=== PATIENT | male | born 1940 | race Two or more races ===

== ENCOUNTER 2017-01-21 08:15 | Inpatient (IN) | payer MEDICARE ==
[2017-01-21] VITALS (10 sets, daily range): BP systolic 113–148; BP diastolic 75–98
[~2017-01-21] VITALS: Ht 172.7 cm; Wt 82.6 kg
[~2017-01-21 08:15] MED LIST: Vancomycin 1 GM in D5W 275 ML IVPB ONE
[2017-01-21] MEDS ORDERED: DEXILANT60 MG ORAL (09:10)
[2017-01-21] MEDS ORDERED: NORVASC5 MG ORAL (09:10)
[2017-01-21] MEDS ORDERED: ASPIR 8181 MG ORAL (09:10)
--- NOTE | 2017-01-21 09:58 | Pre-Procedure Note/Attestation ---
Pre-Procedure Note/Attestation Complete Prior to Procedure Planned Procedure: not applicable Procedure Narrative: Remove and replace IPP Indications for Procedure Pre-Operative Diagnosis: ED Attestation I attest that I discussed the nature of the procedure; its benefits; risks and complications; and alternatives (and the risks and benefits of such alternatives ), prior to the procedure, with the patient (or the patient's legal client support representative). I attest that, if there was a reasonable possibility of needing a blood transfusion, the patient (or the patient's legal client support representative) was given the [facility] standardized written summary, pursuant to the Feliciano Vinny Blood Safety Act ([place] Health and Safety Code # 1645, as amended). I attest that I re-evaluated the patient just prior to the surgery and that there has been no change in the patient's H&P, except as documented below: Apolinar Toribio MD Jan 21, 2017 09:58
[2017-01-21] MEDS ORDERED: Sterile Water Irrig 1000ml IRRIG ONE (12:15)
[2017-01-21] MEDS ORDERED: Neostigmine 1mg/ml 10ml Inj ONE ×2 (12:15→12:51)
[2017-01-21] MEDS ORDERED: Lidocaine 1% MPF 10mg/ml 5ml ONE (12:15)
[2017-01-21] MEDS ORDERED: Glycopyrrolate 0.2mg/ml 1ml Vial ONE (12:15)
[2017-01-21] MEDS ORDERED: Propofol 10mg/ml 20ml IV ONE (12:15)
[2017-01-21] MEDS ORDERED: Midazolam 2mg/2ml Inj ONE (12:15)
[2017-01-21] MEDS ORDERED: NS Irrig 2000ml IRRIG ONE (12:15)
[2017-01-21] MEDS ORDERED: Nimbex 2mg/ml Inj 10ML IVP ONE (12:15)
[2017-01-21] MEDS ORDERED: LR 1000ml ONE (12:15)
[2017-01-21] MEDS ORDERED: fentaNYL 100 mcg/2 mL IV ONE (12:15)
[2017-01-21] MEDS ORDERED: Vancomycin 1gm inj IVPB ONE (12:16)
[2017-01-21] MEDS ORDERED: Bacitracin 50000 Units Vial ONE (12:16)
[2017-01-21] MEDS ORDERED: HYDROmorphone 1mg/ml Carpuject SUBQ PRN (13:00)
--- NOTE | 2017-01-21 13:10 | Anethesia Preoperative Eval ---
Anesthesia Pre-op PMH/ROS General Date of Evaluation: Jan 21, 2017 Time of Evaluation: 12:14 Anesthesiologist: Lenka ASA Score: ASA 3 Mallampati Score Class I : Soft palate, uvula, fauces, pillars visible Class II: Soft palate, uvula, fauces visible Class III: Soft palate, base of uvula visible Class IV: Only hard plate visible Mallampati Classification: Class II Surgeon: Catarino Diagnosis: Malfunctioning Penile Implant Surgical Procedure: Revision, Replacement Penile Implant Anesthesia History: none Family History: no anesthesia problems Allergies: Coded Allergies: No Known Allergies (Unverified , 01/20/17) Medications: see eMAR Past Medical History Cardiovascular: Reports: HTN Gastrointestinal/Genitourinary: Reports: GERD, other - Prostate CA Endocrine: Reports: DM HEENT: Reports: cataract (L), cataract (R) Hematology/Immune: Reports: other - Prostate CA PSxH Narrative: B Cat ext IOL, Hernia repair, prostatectomy Anesthesia Pre-op Phys. Exam Physician Exam Last Vital Signs Date Time Temp Pulse Resp B/P Pulse Ox O2 Delivery O2 Flow Rate FiO2 01/21/17 08:58 97.5 55 18 146/80 96 Room Air Constitutional: NAD Neurologic: CN 2-12 intact Cardiovascular: RRR Respiratory: CTA Gastrointestinal: S/NT/ND Airway Exam Mallampati Score: Class II MO: full ROM: limited Teeth: intact Anesthesia Pre-op A/P Risk Assessment & Plan Assessment: ASA 3 Plan: GA, Glidescope, BIS Status Change Before Surgery: No Pre-Antibiotics Drug: Vancomycin 1 g, Gentamicin 80 MG IV Given Within 1 Hr of Incision: Yes Time Given: 12:36 Denny Og MD Jan 21, 2017 13:10
--- NOTE | 2017-01-21 13:11 | Immediate Post-Op Evaluation ---
Immediate Post-Op Evalulation Immediate Post-Op Evalulation Procedure: Revision, Replacement Penile Implant Date of Evaluation: Jan 21, 2017 Time of Evaluation: 14:13 IV Fluids: 1000 LR Blood Products: 0 Estimated Blood Loss: 25 Urinary Output: 200 Blood Pressure Systolic: 148 Blood Pressure Diastolic: 98 Pulse Rate: 67 Respiratory Rate: 16 O2 Sat by Pulse Oximetry: 97 Temperature (Fahrenheit): 97.1 Pain Score (1-10): 2 Nausea: No Vomiting: No Complications 0 Patient Status: awake, reacts, patent, extubated, none Hydration Status: adequate Drug: Vancomycin 1 g, Gentamicin 80 MG IV Given Within 1 Hr of Incision: Yes Time Given: 12:36 Denny Og MD Jan 21, 2017 13:11
[2017-01-21] MEDS ORDERED: LORazepam Inj 2mg/ml 1ml IV PRN (13:15)
[2017-01-21] MEDS ORDERED: Ketorolac 60mg Inj IV PRN (13:15)
[2017-01-21] MEDS ORDERED: Oxycodone/Acetaminophen 5-325 ORAL PRN (13:15)
[2017-01-21] MEDS ORDERED: Metoclopramide 10mg/2ml Inj IVP PRN (13:15)
[2017-01-21] MEDS ORDERED: Atropine Inj 1mg/10ml Syr IV PRN (13:15)
[2017-01-21] MEDS ORDERED: fentaNYL 100 mcg/2 mL IV PRN (13:15)
[2017-01-21] MEDS ORDERED: DiphenhydrAMINE 50mg/ml Inj IVP PRN (13:15)
[2017-01-21] MEDS ORDERED: Midazolam 2mg/2ml Inj IVP PRN (13:15)
[2017-01-21] MEDS ORDERED: Hydromorphone 0.5mg/0.5ml inj IVP PRN (13:15)
[2017-01-21] MEDS ORDERED: Ketorolac 30mg Inj IV PRN (13:15)
[2017-01-21] MEDS ORDERED: Norco 7.5mg/325mg tab ORAL PRN (13:15)
[2017-01-21] MEDS ORDERED: Meperidine 25mg/0.5ml Inj IV PRN (13:15)
[2017-01-21] MEDS ORDERED: Norco 5mg/325mg tab ORAL PRN ×2 (13:15→15:00)
--- NOTE | 2017-01-21 13:52 | Brief Operative Note ---
Immediate Post Operative Note Operative Note Pre-op Diagnosis: ED Procedure: removal and replacement of IPP Post-op Diagnosis: same Post-op Diagnosis: same as pre-op Surgeon: Demetris Toribio Anesthesia: general Specimen: yes Complications: none Condition: stable Estimated Blood Loss: minimal Implant(s) used?: Yes Apolinar Toribio MD Jan 21, 2017 13:51
[2017-01-21] MEDS ORDERED: LR 1000ml 1,000 ML IVLG SCH (14:45)
[2017-01-21] MEDS ORDERED: Acetaminophen (Non formulary) 1,000 MG/100 ML ML IV SCH (14:50)
[2017-01-21] MEDS ORDERED: Tylenol #3 tab (300mg/30mg) ORAL PRN (15:00)
[2017-01-21] MEDS: D5 1/2NS 1,000 ML IV SCH (22:21)
[2017-01-22 00:15] VITALS: BP 105/66
[2017-01-22] MEDS: D5 1/2NS 1,000 ML IV SCH ×2 (01:00→11:00)
[2017-01-22 04:00] VITALS: BP 118/77
[2017-01-22 08:00] VITALS: BP 118/76
[2017-01-22] MEDS ORDERED: ACETAMINOPHEN-1 EAC1 ORAL (10:17)
[2017-01-22] MEDS ORDERED: Phenazopyridine 200mg tab ORAL ONE (10:30)
[2017-01-22] MEDS ORDERED: Levofloxacin 500mg tab ORAL ONE (10:30)
[2017-01-22] MEDS ORDERED: D5 1/2NS 1000ml IV ONE (10:59)
[2017-01-22 11:04] VITALS: BP 118/77
--- NOTE | 2017-01-22 11:04 | 48 Hour Post Anesthesia Eval ---
Post Anesthesia Evaluation Procedure: Revision, Replacement Penile Implant Date of Evaluation: Jan 22, 2017 Time of Evaluation: 06:55 Blood Pressure Systolic: 118 0: 77 Pulse Rate: 60 Respiratory Rate: 19 Temperature (Fahrenheit): 97.3 O2 Sat by Pulse Oximetry: 94 Airway: patent Nausea: No Vomiting: No Pain Intensity: 2 Hydration Status: adequate Cardiopulmonary Status: at baseline Mental Status/LOC: patient returned to baseline Post-Anesthesia Complications: 0 Follow-up care needed: N/A - further care as per primary team PADILLA VAZQUEZ M.D. Jan 22, 2017 11:04
--- NOTE | 2017-01-23 09:01 | Discharge Summary 2 SIG ---
DATE OF ADMISSION: 01/21/2017 DATE OF DISCHARGE: 01/22/2017 BRIEF HOSPITAL COURSE: The patient is a 76-year-old male, with history of hypertensive heart disease, hyperlipidemia, DM II, GERD, who was admitted on 01/21/2017 diagnosed to have erectile dysfunction. Underwent removal and replacement of IPP. The patient was admitted under observation for pain control. Postoperatively, Iqbal catheter was discontinued and was voiding and tolerating diet. The patient was discharged home. FINAL DIAGNOSIS: Removal and replacement of IPP. Apolinar Toribio M.D. I have been assigned to dictate discharge summary on this account and I was not involved in the patient's management. Brittney Moreno N.P. DR: TOÑA JOB#: [id number] CC: SALVATORE
--- NOTE | 2017-01-23 18:16 | Operative Note - Dictated ---
DATE OF OPERATION: 01/21/2017 PREOPERATIVE DIAGNOSIS: Nonfunctioning penile prosthesis. POSTOPERATIVE DIAGNOSIS: Nonfunctioning penile prosthesis. OPERATION: Removal of multi-component penile prosthesis and replace it penile prothesis. SURGEON: Apolinar Toribio M.D. ANESTHESIA: General. FINDINGS: Nonfunctioning penile prosthesis. INDICATIONS FOR SURGERY: The patient had prosthesis approximately 10 years ago and it was doing well. Recently, prosthesis was nonfunctioning. Treatment options were explained to him in great length including all potential complications. He understands the nature of the procedure and signed a consent. DESCRIPTION OF SURGERY: After anesthesia, penoscrotal incision was made, and old prosthesis as well as all the components were mobilized and removed for pathologic examination. Corpora was measured and is 22 cm. An 18 cm prosthesis with 4 cm rear tip adapter was reintroduced into the corpora. Pump was placed in standard position. Wound was copiously irrigated. Corpora and scrotum were closed in multiple layers. Subcuticular closure for the skin. Tolerated the procedure well. No evidence of complications. Apolinar Toribio M.D. DR: DULCE JOB#: [id number] CC:
== END 2017-01-22 11:00 | disposition home or self-care (01) | DRG 675 ==
LOC: SUR 08:15 → 3E 20:13
PROC: 0VPS0JZ Removal of Synthetic Substitute from Penis, Open Approach (ICD-10-PCS; principal; 2017-01-21 11:45)
PROC: 0VUS0JZ Supplement Penis with Synthetic Substitute, Open Approach (ICD-10-PCS; principal; 2017-01-21 11:45)
DX: T83.490A Other mechanical complication of implanted penile prosthesis, initial encounter (principal); I11.9 Hypertensive heart disease without heart failure; E11.9 Type 2 diabetes mellitus without complications; N52.9 Male erectile dysfunction, unspecified; Y83.8 Other surgical procedures as the cause of abnormal reaction of the patient, or of later complication, without mention of misadventure at the time of the procedure; E78.5 Hyperlipidemia, unspecified; K21.9 Gastro-esophageal reflux disease without esophagitis
CPT/HCPCS: 94003; 94150; 96360; 96361; G0378; G0379; J1580; J2250; J2405; J2710